=== PATIENT | female | born 1990 | race African-American/Black ===

== ENCOUNTER 2018-03-25 04:46 | Inpatient (IN) | payer MEDICAID ==
[~2018-03-25] VITALS: Ht 180.3 cm; Wt 118.3 kg
[2018-03-25 05:19] LABS: BASOPHILS % (AUTO) 0.5 % (0.0-2.0); EOSINOPHILS % (AUTO) 2.5 % (1.0-6.0); HEMOGLOBIN 13.4 g/dL (12.0-16.0); LYMPHOCYTES # (AUTO) 2.1 K/uL (1.0-4.8); LYMPHOCYTES % (AUTO) 23.3 % (22.0-44.0); MEAN CORPUSCULAR HEMOGLOBIN 32.2 pg (26.0-34.0); MEAN CORPUSCULAR HGB CONC 33.5 G/dL (31.0-37.0); MEAN CORPUSCULAR VOLUME 96 fL (80-100); MONOCYTES # (AUTO) 0.7 K/uL (0.1-1.0); MONOCYTES % (AUTO) 7.7 % (2.0-9.0); NEUTROPHILS # (AUTO) 5.9 K/uL (1.8-7.7); PLATELET COUNT (AUTO) 282 K/uL (150-450); RED BLOOD CELL COUNT(AUTO) 4.16 MIL/uL (4.00-5.20); RED CELL DISTRIBUTION WIDTH 12.2 % (11.5-14.5)
[2018-03-25 05:28] LABS: ANION GAP 6 mmol/L (8-16); CALCIUM, TOTAL 8.9 mg/dL (8.8-10.5); CARBON DIOXIDE 29 mmol/L (22-29); CHLORIDE 102 mmol/L (98-107); CREATININE 0.92 mg/dL (0.60-1.30); GLOMERULAR FILTR. RATE CALC > 60 mL/min (>60); GLUCOSE,RANDOM 129 mg/dL (70-110); POTASSIUM 4.1 mmol/L (3.5-5.1); SODIUM SERUM 137 mmol/L (136-145); UREA NITROGEN, BLOOD 10 mg/dL (7-18)
[2018-03-25 05:31] LABS: APPEARANCE,URINE CLEAR (CLEAR); BILIRUBIN,URINE NEGATIVE (NEGATIVE); GLUCOSE, URINE (UA) NEGATIVE (NEGATIVE); KETONES,URINE NEGATIVE (NEGATIVE); LEUKOCYTE ESTERASE ,URINE SMALL (NEGATIVE); NITRATE,URINE NEGATIVE (NEGATIVE); OCCULT BLOOD,URINE NEGATIVE (NEGATIVE); PROTEIN,URINE NEGATIVE (NEGATIVE); UROBILINOGEN,URINE 0.2 mg/dL (<=1.0)
[2018-03-25 05:34] LABS: ALANINE AMINOTRANSFERASE 50 U/L (12-78); ALBUMIN 3.6 g/dL (3.4-5.0); ALKALINE PHOSPHATASE 85 U/L (46-116); ASPARTATE AMINOTRANSFERASE 27 U/L (15-37); BILIRUBIN,TOTAL 0.7 mg/dL (0.1-1.0); LIPASE 107 U/L (73-393); TOTAL PROTEIN, SERUM 7.5 g/dL (6.4-8.2)
[2018-03-25 05:39] LABS: RBC,URINE 0-2 /HPF (0-2)
[2018-03-25 05:40] LABS: BACTERIA,URINE Few /HPF (None Seen); SQUAMOUS EPITHELIAL CELL,UR Rare /LPF (None Seen)
[2018-03-25] MEDS ORDERED: KETOROLAC TROMETHAMINE 30 MG/ML VIAL IM ONE (06:15)
[2018-03-25] MEDS ORDERED: HYDROCODONE/ACETAMINOPHEN 5-325 MG TABLET PO ONE (06:15)
[2018-03-25] MEDS ORDERED: SODIUM CHLORIDE 0.9% 1,000 ML IV ONE ×2 (09:15→12:56)
[2018-03-25] MEDS ORDERED: PIPERACILLIN SODIUM/TAZOBACTAM 4.5 GM in DEXTROSE 5%-WATER 100 ML IV ONE (09:15)
[2018-03-25] MEDS ORDERED: 0.9% SODIUM CHLORIDE 10 ML SYRINGE IVP PRN (09:45)
[2018-03-25] MEDS ORDERED: ACETAMINOPHEN 325 MG TABLET PO PRN ×2 (09:45→13:00)
[2018-03-25 11:06] VITALS: BP 111/48
[2018-03-25] MEDS ORDERED: SODIUM CHLORIDE 0.9% 500 ML IV ONE (11:14)
[2018-03-25] MEDS ORDERED: BUPIVACAINE 0.25%/EPI 1:200,000/PF 10 ML VIAL ONE (12:55)
[2018-03-25] MEDS ORDERED: GUM MASTIC/STORAX/MSAL/ALCOHOL LIQUID 0.67 ML VIAL TP ONE (12:56)
[2018-03-25] MEDS ORDERED: RINGERS SOLUTION,LACTATED 1,000 ML IV ONE (12:56)
[2018-03-25] MEDS ORDERED: BISACODYL 10 MG RECTAL RECTAL SUPPOSITORY PR PRN (13:00)
[2018-03-25] MEDS ORDERED: MORPHINE SULFATE 2 MG/ML SYRINGE IVP PRN (13:00)
[2018-03-25] MEDS ORDERED: ONDANSETRON HCL 4 MG/2 ML VIAL IVP PRN (13:00)
[2018-03-25] MEDS ORDERED: ZOLPIDEM TARTRATE 5 MG TABLET PO PRN (13:00)
[2018-03-25] MEDS ORDERED: MAGNESIUM HYDROXIDE SUSPENSION 30 ML UDCUP PO PRN (13:00)
[2018-03-25] MEDS ORDERED: HYDROmorphone 2 MG/ML SYRINGE IVP PRN (13:30)
[2018-03-25] MEDS ORDERED: FentaNYL CITRATE-PF 100 MCG/2 ML VIAL IVP PRN (13:30)
[2018-03-25] MEDS ORDERED: MEPERIDINE-PF 25 MG/ML VIAL IVP PRN (13:30)
[2018-03-25] MEDS ORDERED: HYDROCODONE/ACETAMINOPHEN 5-325 MG TABLET PO PRN (14:00)
[2018-03-25] MEDS: HYDROCODONE/ACETAMINOPHEN 5-325 MG TABLET PO PRN ×2 (15:03→19:58)
[2018-03-25] MEDS: MetroNIDAZOLE 500 MG/NACL 100 ML IV SCH ×2 (15:04→22:07)
[2018-03-25] MEDS: CIPROFLOXACIN 400 MG/D5% WATER 200 ML IV SCH (15:04)
[2018-03-25] MEDS ORDERED: MORPHINE SULFATE 4 MG/ML SYRINGE IVP PRN (15:07)
[2018-03-25 15:43] VITALS: BP 116/71
[2018-03-25] MEDS: HEPARIN SODIUM,PORCINE 5,000 UNITS/ML VIAL SQ SCH (17:29)
[2018-03-25 19:30] VITALS: BP 102/57
[2018-03-25] MEDS: DOCUSATE SODIUM 100 MG CAPSULE PO SCH (19:58)
[2018-03-25] MEDS ORDERED: OXYGEN THERAPY IH SCH (20:00)
[2018-03-25 23:35] VITALS: BP 101/59
[2018-03-26] MEDS: CIPROFLOXACIN 400 MG/D5% WATER 200 ML IV SCH ×2 (00:04→13:18)
[2018-03-26] MEDS: HEPARIN SODIUM,PORCINE 5,000 UNITS/ML VIAL SQ SCH ×2 (00:04→08:04)
[2018-03-26 04:00] VITALS: BP 119/68
[2018-03-26] MEDS: HYDROCODONE/ACETAMINOPHEN 5-325 MG TABLET PO PRN ×3 (04:24→13:50)
[2018-03-26] MEDS: MetroNIDAZOLE 500 MG/NACL 100 ML IV SCH ×2 (05:26→14:37)
[2018-03-26] MEDS ORDERED: ONDANSETRON HCL 4 MG/2 ML VIAL IVP ONE (05:35)
[2018-03-26] MEDS ORDERED: MIDAZOLAM HCL 2 MG/2 ML VIAL IVP ONE (05:35)
[2018-03-26] MEDS ORDERED: KETOROLAC TROMETHAMINE 60 MG/2 ML VIAL IM ONE (05:35)
[2018-03-26] MEDS ORDERED: FentaNYL CITRATE-PF 100 MCG/2 ML VIAL IVP ONE (05:35)
[2018-03-26] MEDS ORDERED: DEXAMETHASONE SOD PHOS 4 MG/ML VIAL IVP ONE (05:35)
[2018-03-26] MEDS ORDERED: SUCCINYLCHOLINE CHLORIDE 20 MG/ML 10 ML VIAL IVP ONE (05:35)
[2018-03-26] MEDS ORDERED: LIDOCAINE/PF 2% 5 ML VIAL IM ONE (05:35)
[2018-03-26] MEDS ORDERED: PROPOFOL 1% 20 ML VIAL IVP ONE (05:35)
[2018-03-26 06:37] LABS: BASOPHILS % (AUTO) 0.1 % (0.0-2.0); EOSINOPHILS % (AUTO) 0 % (1.0-6.0); HEMATOCRIT 36.3 % (36-46); HEMOGLOBIN 12.2 g/dL (12.0-16.0); LYMPHOCYTES # (AUTO) 1.3 K/uL (1.0-4.8); LYMPHOCYTES % (AUTO) 8.8 % (22.0-44.0); MEAN CORPUSCULAR HEMOGLOBIN 31.8 pg (26.0-34.0); MEAN CORPUSCULAR HGB CONC 33.5 G/dL (31.0-37.0); MEAN CORPUSCULAR VOLUME 95 fL (80-100); MONOCYTES # (AUTO) 0.9 K/uL (0.1-1.0); MONOCYTES % (AUTO) 6.2 % (2.0-9.0); NEUTROPHILS # (AUTO) 12.6 K/uL (1.8-7.7); NEUTROPHILS % (AUTO) 84.9 % (40.0-70.0); PLATELET COUNT (AUTO) 262 K/uL (150-450); RED BLOOD CELL COUNT(AUTO) 3.83 MIL/uL (4.00-5.20); RED CELL DISTRIBUTION WIDTH 11.7 % (11.5-14.5)
[2018-03-26 06:58] LABS: ALANINE AMINOTRANSFERASE 40 U/L (12-78); ALBUMIN 3.1 g/dL (3.4-5.0); ALKALINE PHOSPHATASE 72 U/L (46-116); ANION GAP 6 mmol/L (8-16); ASPARTATE AMINOTRANSFERASE 29 U/L (15-37); BILIRUBIN,TOTAL 0.8 mg/dL (0.1-1.0); CALCIUM, TOTAL 8.1 mg/dL (8.8-10.5); CARBON DIOXIDE 28 mmol/L (22-29); CHLORIDE 105 mmol/L (98-107); CREATININE 0.91 mg/dL (0.60-1.30); GLOMERULAR FILTR. RATE CALC > 60 mL/min (>60); GLUCOSE,RANDOM 126 mg/dL (70-110); POTASSIUM 3.7 mmol/L (3.5-5.1); SODIUM SERUM 139 mmol/L (136-145); TOTAL PROTEIN, SERUM 6.6 g/dL (6.4-8.2); UREA NITROGEN, BLOOD 9 mg/dL (7-18)
[2018-03-26 07:57] VITALS: BP 140/67
[2018-03-26] MEDS: DOCUSATE SODIUM 100 MG CAPSULE PO SCH (08:03)
[2018-03-26] MEDS ORDERED: PANTOPRAZOLE SODIUM 40 MG DR TABLET PO SCH (09:00)
[2018-03-26 11:37] VITALS: BP 117/58
[2018-03-26] MEDS ORDERED: DSS100 PO (14:24)
[2018-03-26] MEDS ORDERED: CIPR-278 PO (14:25)
[2018-03-26] MEDS ORDERED: METR500 PO (14:25)
[2018-03-26] MEDS ORDERED: TRAM50TA4 PO (14:27)
== END 2018-03-26 16:26 | disposition home or self-care (01) | DRG 234 ==
LOC: EMS 04:46 → 6N 10:21
PROVIDERS: ADMIT Internal Medicine; ATTEND Internal Medicine
PROC: 0DTJ4ZZ Resection of Appendix, Percutaneous Endoscopic Approach (ICD-10-PCS; principal; 2018-03-25 12:30)
PROC: 3E02340 Introduction of Influenza Vaccine into Muscle, Percutaneous Approach (ICD-10-PCS; 2018-03-26)
DX: K35.80 Unspecified acute appendicitis (principal); E66.01 Morbid (severe) obesity due to excess calories; F10.10 Alcohol abuse, uncomplicated; F12.90 Cannabis use, unspecified, uncomplicated; F17.210 Nicotine dependence, cigarettes, uncomplicated; N20.0 Calculus of kidney; G47.9 Sleep disorder, unspecified; K82.8 Other specified diseases of gallbladder; F19.10 Other psychoactive substance abuse, uncomplicated; K38.1 Appendicular concretions; Z80.0 Family history of malignant neoplasm of digestive organs; Z71.6 Tobacco abuse counseling; Z68.36 Body mass index [BMI] 36.0-36.9, adult
CPT/HCPCS: 74176; 87081; 88304; 90686; 96365; 96372; G0378; J0330; J0744; J1100; J1644; J1885; J2250; J2270; J2405; J2543; J2704; J3010; J3490; J7030; J7040; J7060; J7120

== ENCOUNTER 2021-03-12 10:21 | Emergency (ER) | payer MEDICAID, OTHER ==
[~2021-03-12] VITALS: Ht 180.3 cm; Wt 81.8 kg
[~2021-03-12 10:21] MED LIST: CIPR-278 PO; DSS100 PO; METR500 PO; TRAM50TA4 PO
[2021-03-12 10:44] LABS: COVID AG,FIA SOURCE NASOPHARYNGEAL
[2021-03-12] MEDS ORDERED: ALBUTEROL SULFATE 5 MG/ML 20 ML NEB SOLN [BULK] NEB ONE ×2 (10:45→12:30)
[2021-03-12] MEDS ORDERED: PredniSONE 20 MG TABLET PO ONE (10:45)
[2021-03-12] MEDS ORDERED: LEVALBUTEROL HCL 1.25 MG/0.5 ML NEB SOLUTION NEB ONE (12:45)
[2021-03-12 14:43] VITALS: BP 119/70
== END 2021-03-12 14:44 | disposition home or self-care (01) ==
LOC: EMS 10:42
DX: J45.909 Unspecified asthma, uncomplicated (principal); F12.90 Cannabis use, unspecified, uncomplicated; F17.210 Nicotine dependence, cigarettes, uncomplicated; Z77.098 Contact with and (suspected) exposure to other hazardous, chiefly nonmedicinal, chemicals; Z79.899 Other long term (current) drug therapy; Z20.822 Contact with and (suspected) exposure to COVID-19
CPT/HCPCS: 71045; 87426; 94640; 99285; J7512; U0003; J7611; Z7610